=== PATIENT | female | born 1945 | race Caucasian/White ===

== ENCOUNTER 2019-08-08 01:27 | Emergency (ER) | payer MEDICARE, BC ==
--- NOTE | 2019-08-08 01:39 | EDM.PDOC ---
ED HPI GENERAL MEDICAL PROBLEM - General Chief Complaint: Laceration Stated Complaint: head laceration Time Seen by Provider: 08/08/19 01:37 Source of Information: Reports: Patient, Family History Limitations: Reports: No Limitations - History of Present Illness INITIAL COMMENTS - FREE TEXT/NARRATIVE: Patient was going around the bed when she fell after getting caught on the bedspread hitting the corner of a chair patient was bleeding when she got here Pressure on at this time patient is seen small laceration on the occiput area Onset: Today Duration: Minutes:, Improving Location: Reports: Head Quality: Reports: Ache Severity: Mild Improves with: Reports: None Worsens with: Reports: None - Related Data Allergies Allergy/AdvReac Type Severity Reaction Status Date / Time amoxicillin Allergy Rash Verified 08/08/19 01:29 erythromycin base Allergy Nausea and Verified 08/08/19 01:29 Vomiting latex Allergy Rash Verified 08/08/19 01:29 meperidine HCl [From Demerol] Allergy Disorientat Verified 08/08/19 01:29 ion Penicillins Allergy Disorientat Verified 08/08/19 01:29 ion Sulfa (Sulfonamide Allergy Rash Verified 08/08/19 01:29 Antibiotics) zinc Allergy Vomiting Verified 08/08/19 01:29 dust Allergy Rash Uncoded 08/08/19 01:29 Home Meds: Home Meds atorvaSTATin [Lipitor] 20 mg PO BEDTIME 05/20/14 [History] Albuterol [Ventolin HFA] 8 gm INH ASDIRECTED 03/06/16 [History] Beclomethasone Dipropionate [Qvar] 40 mcg IH BID PRN 03/06/16 [History] Gabapentin [Neurontin] 300 mg PO TID PRN 03/06/16 [History] Montelukast [Singulair] 10 mg PO QAM 03/06/16 [History] Ondansetron [Zofran] 8 mg PO Q6H PRN 03/06/16 [History] Zoledronic Acid in Water [Reclast] 1 ml IV ASDIRECTED 03/06/16 [History] Sertraline [Zoloft] 1 tab PO DAILY 08/08/19 [History] Past Medical History HEENT History: Reports: Allergic Rhinitis Cardiovascular History: Reports: High Cholesterol, Hypertension Respiratory History: Reports: Asthma Gastrointestinal History: Reports: Cholelithiasis Other [employer] History: yeast infections Musculoskeletal History: Reports: Osteoporosis Other Musculoskeletal History: osteopenia Neurological History: Reports: Migraines Psychiatric History: Reports: Addiction, Anxiety Endocrine/Metabolic History: Reports: Vitamin D Deficiency Hematologic History: Reports: Other (See Below) Other Hematologic History: low Vit D Other Dermatologic History: chronic hives - Past Surgical History GI Surgical History: Reports: Appendectomy, Cholecystectomy ED ROS GENERAL - Review of Systems Review Of Systems: See Below Constitutional: Reports: No Symptoms HEENT: Reports: No Symptoms Respiratory: Reports: No Symptoms Cardiovascular: Reports: No Symptoms Endocrine: Reports: No Symptoms GI/Abdominal: Reports: No Symptoms : Reports: No Symptoms Musculoskeletal: Reports: No Symptoms Skin: Reports: No Symptoms Neurological: Reports: No Symptoms Psychiatric: Reports: No Symptoms Hematologic/Lymphatic: Reports: No Symptoms Immunologic: Reports: No Symptoms ED EXAM, SKIN/RASH Exam: See Below Exam Limited By: No Limitations General Appearance: Alert, WD/WN, No Apparent Distress Ears: Normal External Exam, Normal Canal, Hearing Grossly Normal, Normal TMs Nose: Normal Inspection, Normal Mucosa, No Blood Throat/Mouth: Normal Inspection, Normal Lips, Normal Teeth, Normal Gums, Normal Oropharynx, Normal Voice, No Airway Compromise Head: Normocephalic, Other (Occiput laceration about 2 cm superficial) Neck: Normal Inspection, Supple, Non-Tender, Full Range of Motion Respiratory/Chest: No Respiratory Distress, Lungs Clear, Normal Breath Sounds, No Accessory Muscle Use, Chest Non-Tender Cardiovascular: Normal Peripheral Pulses, Regular Rate, Rhythm, No Edema, No Gallop, No JVD, No Murmur, No Rub GI/Abdominal: Normal Bowel Sounds, Soft, Non-Tender, No Organomegaly, No Distention, No Abnormal Bruit, No Mass (Female) Exam: Normal External Exam, Normal Speculum Exam, Normal Bimanual Exam Rectal (Female) Exam: Normal Exam, Normal Rectal Tone Back Exam: Normal Inspection, Full Range of Motion, NT Extremities: Normal Inspection, Normal Range of Motion, Non-Tender, No Pedal Edema, Normal Capillary Refill Neurological: Alert, Oriented, CN II-XII Intact, Normal Cognition, Normal Gait, Normal Reflexes, No Motor/Sensory Deficits Psychiatric: Normal Affect, Normal Mood Lymphatic: No Adenopathy ED SKIN PROCEDURES - Laceration/Wound Repair Middle Posterior Occipital Appearance: Superficial Skin Prep: Saline Exploration/Debridement/Repair: In a Bloodless Field Closed with: Wound Adhesive Lac/Wound length In cm: 2 Course - Vital Signs Last Recorded V/S: Last Vital Signs Temp 97.9 F 08/08/19 01:41 Pulse 85 08/08/19 01:41 Resp 16 08/08/19 01:41 BP 143/77 H 08/08/19 01:41 Pulse Ox 96 08/08/19 01:41 Departure - Departure Time of Disposition: 01:44 Disposition: Home, Self-Care 01 Condition: Fair Clinical Impression: Broken skin - Discharge Information *PRESCRIPTION DRUG MONITORING PROGRAM REVIEWED*: No *COPY OF PRESCRIPTION DRUG MONITORING REPORT IN PATIENT YECENIA: No Referrals: Sheets-Eloina Roach MD [Primary Care Provider] - Forms: ED Department Discharge Care Plan Goals: At this time laceration was evaluated and we decided to Dermabond patient tolerated well procedure will be sent home she is to follow-up with primary if any concerns
[2019-08-08 01:43] VITALS: BP 143/77; PULSE 85
== END 2019-08-08 01:55 | disposition home or self-care (01) ==
LOC: LL.ED 01:27
DX: S01.01XA Laceration without foreign body of scalp, initial encounter (principal); I10 Essential (primary) hypertension; J45.909 Unspecified asthma, uncomplicated; F41.9 Anxiety disorder, unspecified; E78.00 Pure hypercholesterolemia, unspecified; Z88.1 Allergy status to other antibiotic agents; Z88.0 Allergy status to penicillin; Z88.2 Allergy status to sulfonamides; Z88.8 Allergy status to other drugs, medicaments and biological substances; Z91.040 Latex allergy status; Z91.048 Other nonmedicinal substance allergy status; Z79.899 Other long term (current) drug therapy; W06.XXXA Fall from bed, initial encounter; W22.8XXA Striking against or struck by other objects, initial encounter
CPT/HCPCS: 12001; 99282

== ENCOUNTER 2023-11-03 13:36 | Emergency (ER) | payer MEDICARE, BC ==
[2023-11-03] MEDS ORDERED: Sodium Chloride 0.9% 1,000 ML IV ONE (14:00)
[2023-11-03 14:21] LABS: BASOPHILS ABSOLUTE AUTO 0.03 K/uL (0.00-0.20); BASOPHILS PERCENT AUTO 0.4 % (0.0-2.0); EOSINOPHILS ABSOLUTE AUTO 0.03 K/uL (0.00-0.50); EOSINOPHILS PERCENT AUTO 0.4 % (0.0-5.0); HEMATOCRIT 40.5 % (34.0-46.0); HEMOGLOBIN 13.2 g/dL (11.7-15.5); LYMPHOCYTES ABSOLUTE AUTO 1.24 K/uL (0.50-3.50); LYMPHOCYTES PERCENT AUTO 17.1 % (10.0-50.0); MEAN CORPUSCULAR HEMOGLOBIN 30.4 pg (28.2-33.3); MEAN CORPUSCULAR HGB CONC 32.6 g/dL (31.7-36.0); MEAN CORPUSCULAR VOLUME 93.3 fL (84.0-98.0); MONOCYTES ABSOLUTE AUTO 0.61 K/uL (0.00-1.00); MONOCYTES PERCENT AUTO 8.4 % (2.0-14.0); NEUTROPHILS ABSOLUTE AUTO 5.33 K/uL (1.40-7.00); NEUTROPHILS PERCENT AUTO 73.7 % (45.0-80.0); PLATELET COUNT,PLT 398 K/uL (150-350); RED BLOOD CELL COUNT 4.34 M/uL (3.77-5.09); RED CELL DISTRIBUTION WIDTH 12.7 % (11.2-14.1); WHITE BLOOD CELL COUNT,WBC 7.2 K/uL (4.0-10.2)
[2023-11-03 14:44] LABS: ALBUMIN 4.2 g/dL (3.4-5.0); ANION GAP 12.2 meq/L (7-15); BILIRUBIN TOTAL 0.6 mg/dL (0.2-1.0); CALCIUM 9.4 mg/dL (8.5-10.1); CARBON DIOXIDE,CO2 24.8 mmol/L (21.0-32.0); CREATININE 0.75 mg/dL (0.51-1.17); EST CRCL DRUG DOSING (CG) 57.42 mL/min; MAGNESIUM 2.4 mg/dL (1.8-2.4); PROTEIN TOTAL,TP 8.2 g/dL (6.4-8.2)
[2023-11-03 15:14] LABS: CORONAVIRUS COVID-19 NAA POSITIVE (NEGATIVE)
[2023-11-03 15:15] LABS: INFLUENZA A NAA NEGATIVE (NEGATIVE); INFLUENZA B NAA NEGATIVE (NEGATIVE); RESPIRATORY SYNCYTIAL VIR NAA NEGATIVE (NEGATIVE)
[2023-11-03] MEDS ORDERED: Ketorolac 30 MG/ML SDV IVPUSH ONE (16:51)
[2023-11-03] MEDS ORDERED: Ondansetron 4 MG/2 ML SDV IVPUSH ONE (16:51)
[2023-11-03 19:02] VITALS: BP 155/79; PULSE 99
== END 2023-11-03 18:30 | disposition home or self-care (01) ==
LOC: LL.ED 13:36
DX: U07.1 COVID-19 (principal); E78.00 Pure hypercholesterolemia, unspecified; I10 Essential (primary) hypertension; J45.909 Unspecified asthma, uncomplicated; Z79.899 Other long term (current) drug therapy; Z88.1 Allergy status to other antibiotic agents; Z88.0 Allergy status to penicillin; Z91.040 Latex allergy status; Z88.8 Allergy status to other drugs, medicaments and biological substances; Z88.2 Allergy status to sulfonamides; Z91.048 Other nonmedicinal substance allergy status
CPT/HCPCS: 0241U; 36415; 71046; 80053; 83605; 83735; 83880; 85025; 96361; 96374; 96375; 99284; 99284-25; J1885; J2405; J7030